=== PATIENT | female | born 1960 | race Caucasian/White ===

== ENCOUNTER 2017-06-12 00:47 | Emergency (ER) | payer BC ==
[2017-06-12] MEDS ORDERED: Erythromycin Base 0.5% Ophth Oint 1 GM Tube EYERT ONE (01:35)
--- NOTE | 2017-06-12 01:38 | EDM.PDOC ---
ED HPI GENERAL MEDICAL PROBLEM - General Chief Complaint: Eye Problems Stated Complaint: CONTACT STUCK IN R EYE Time Seen by Provider: 06/12/17 00:58 Source of Information: Reports: Patient History Limitations: Reports: No Limitations - History of Present Illness INITIAL COMMENTS - FREE TEXT/NARRATIVE: This is a 57-year-old female. She is trying contacts in her eyes and started a couple days ago. She's noted that she has a difficult time getting the contacts out though she can put them in easily. She wears 24-hour contacts. This evening she attempted to get the contact out of her right eye and was unable to do so and so she continued to try until now she's got severe swelling of the sclera on the inferior side of the right eye. She still thinks the contact is in her right eye and she comes to the ER for evaluation. She denies any significant change in vision with this redness and swelling of the sclera. 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 History: Reports: Musculoskeletal History: Reports: Fracture Other Musculoskeletal History: cheek bone fx Oncologic (Cancer) History: Reports: Ovarian, Other (See Below) Other Oncologic History: fallopian tube cancer - Infectious Disease History Infectious Disease History: Reports: Chicken Pox - Past Surgical History HEENT Surgical History: Reports: Tonsillectomy Female Surgical History: Reports: Hysterectomy Social & Family History - Tobacco Use Smoking Status *Q: Never Smoker - Caffeine Use Caffeine Use: Reports: Coffee - Recreational Drug Use Recreational Drug Use: No ED ROS GENERAL - Review of Systems Review Of Systems: See Below Constitutional: Denies: Fever, Chills HEENT: Reports: Eye Discharge, Eye Pain. Denies: Vision Change Respiratory: Reports: No Symptoms Cardiovascular: Reports: No Symptoms Endocrine: Reports: No Symptoms GI/Abdominal: Reports: No Symptoms : Reports: No Symptoms Musculoskeletal: Reports: No Symptoms Skin: Reports: No Symptoms Neurological: Reports: No Symptoms Psychiatric: Reports: No Symptoms Hematologic/Lymphatic: Reports: No Symptoms ED EXAM GENERAL W FULL EYE - Physical Exam Exam: See Below Exam Limited By: No Limitations General Appearance: Alert, WD/WN, No Apparent Distress Eye Exam: Bilateral Eye: Other (The right eye is very inflamed and especially the inferior portion of the globe with swelling of the sclera and bruising of the sclera, the right upper lid is also slightly swollen due to her rubbing her eye, with examination I cannot see any contact lens, fluorsceine stain was used and showed a corneal abrasion but there is no contact lens in her right eye) Eyelids: Right: Edema (Upper eyelid only), Lid Everted for Exam (No foreign body seen no contact lens seen) Conjunctiva & Sclera: Right: Conjunctival Edema, Injected, Subconjuctival Hemorrhage Cornea Exam: Right: Corneal Abrasion Extraocular Movements: Bilateral: Intact Pupils: Normal Accommodation Pupillary Reaction: Bilateral: Brisk Anterior Chamber: Bilateral: Normal Appearance Ears: Normal External Exam Nose: Normal Inspection Throat/Mouth: Normal Inspection, Normal Lips, Normal Voice Head: Normocephalic Neck: Supple Respiratory/Chest: No Respiratory Distress Back Exam: Full Range of Motion Extremities: Normal Inspection, Normal Range of Motion, Non-Tender Neurological: Alert, Oriented Psychiatric: Normal Affect, Normal Mood Skin Exam: Warm, Dry Course - Vital Signs Last Recorded V/S: Last Vital Signs Temp 97.4 F 06/12/17 00:56 Pulse 65 06/12/17 00:56 Resp 18 06/12/17 00:56 BP 163/94 H 06/12/17 00:56 Pulse Ox 98 06/12/17 00:56 - Orders/Labs/Meds Orders: Active Orders 24 hr Category Date Time Status Communication Order [RC] STAT Care 06/12/17 01:35 Active Meds: Medications Discontinued Medications Generic Name Dose Route Start Last Admin Trade Name Rahat PRN Reason Stop Dose Admin Erythromycin 1 gm 06/12/17 01:35 Erythromycin 0.5% Ophth Oint EYERT 06/12/17 01:36 ONETIME ONE - Re-Assessments/Exams Free Text/Narrative Re-Assessment/Exam: 06/12/17 01:49 She has some scleral swelling and mild hemorrhage along with a corneal abrasion noted by flouresceine stain. Departure - Departure Time of Disposition: 01:50 Disposition: Home, Self-Care 01 Condition: Good Clinical Impression: Scleral hemorrhage of right eye Corneal abrasion, right Qualifiers: Encounter type: initial encounter Qualified Code(s): S05.01XA - Injury of conjunctiva and corneal abrasion without foreign body, right eye, initial encounter Injury of right conjunctiva and corneal abrasion Qualifiers: Encounter type: initial encounter Qualified Code(s): S05.01XA - Injury of conjunctiva and corneal abrasion without foreign body, right eye, initial encounter - Discharge Information Referrals: Jeremiah France MD [Primary Care Provider] - Forms: ED Department Discharge Additional Instructions: Wear the eye patch until 6 PM on Tuesday then you may take it off, get some artificial tears and use them for the irritation of that right eye once the patch is off, use the Cortisporin otic drops 3 times a day once the patches off for at least the next 3-4 days, do not rub your eye because you will continue the irritation and swelling of the eye, do not put contacts in the right eye until the eye is completely healed, follow-up with your eye doctor this week for recheck - My Orders Last 24 Hours: My Active Orders 06/12/17 01:35 Communication Order [RC] STAT - Assessment/Plan Last 24 Hours: My Active Orders 06/12/17 01:35 Communication Order [RC] STAT
== END 2017-06-12 02:05 | disposition home or self-care (01) ==
LOC: JD.ED 00:47
DX: S05.01XA Injury of conjunctiva and corneal abrasion without foreign body, right eye, initial encounter (principal); H11.31 Conjunctival hemorrhage, right eye; X58.XXXA Exposure to other specified factors, initial encounter
CPT/HCPCS: 99283; A9270; 99282

== ENCOUNTER 2021-01-20 07:25 | Day surgery (SDC) | payer BC ==
[~2021-01-20 07:25] MED LIST: Lactated Ringers 1,000 ML IV SCH; Lidocaine 1%/Sod Bicarbonate in NS 8.4% 1 ML Syringe IDERM PRN; Sodium Chloride 0.9% 10 ML Syringe FLUSH PRN
--- NOTE | 2021-01-20 07:47 | PCM.PREANE ---
Preanesthetic Assessment - Procedure Proposed Procedure: screening colonoscopy - Anesthesia/Transfusion/Family Hx Anesthesia History: Prior Anesthesia Without Reaction Family History of Anesthesia Reaction: No Transfusion History: No Prior Transfusion(s) Intubation History: Unknown - Review of Systems General: No Symptoms Pulmonary: No Symptoms Cardiovascular: No Symptoms Gastrointestinal: No Symptoms Neurological: Headache ( in past, not currently ) Other: Reports: None - Physical Assessment NPO Status Date: 01/20/21 NPO Status Time: 04:00 Height: 1.68 m Weight: 79.379 kg ASA Class: 2 Mental Status: Alert & Oriented x3 Airway Class: Mallampati = 1 Dentition: Reports: Normal Dentition Thyro-Mental Finger Breadths: 3 Mouth Opening Finger Breadths: 5 ROM/Head Extension: Full Lungs: Clear to Auscultation, Normal Respiratory Effort Cardiovascular: Regular Rate, Regular Rhythm - Allergies Allergies/Adverse Reactions: Allergies Allergy/AdvReac Type Severity Reaction Status Date / Time paclitaxel [From Taxol] Allergy Itching Verified 01/19/21 13:53 - Blood Blood Available: No - Anesthesia Plan Pre-Op Medication Ordered: None - Acknowledgements Anesthesia Type Planned: MAC Pt an Appropriate Candidate for the Planned Anesthesia: Yes Alternatives and Risks of Anesthesia Discussed w Pt/Guardian: Yes Pt/Guardian Understands and Agrees with Anesthesia Plan: Yes PreAnesthesia Questionnaire HEENT History: Reports: Impaired Vision Cardiovascular History: Reports: High Cholesterol Respiratory History: Reports: None Gastrointestinal History: Reports: None Genitourinary History: Reports: None 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: Reports: , Other (See Below) Other OB/BYN History: decreased libido, fallopian tube cancer Musculoskeletal History: Reports: Fracture, Osteoarthritis Other Musculoskeletal History: cheek bone fx Neurological History: Reports: Headaches, Chronic, Other (See Below) Other Neuro History: spine osteophyte, cervical spine pain Psychiatric History: Reports: None Endocrine/Metabolic History: Reports: None Hematologic History: Reports: None Immunologic History: Reports: None Oncologic (Cancer) History: Reports: Ovarian, Other (See Below) Other Oncologic History: fallopian tube cancer Dermatologic History: Reports: None - Infectious Disease History Infectious Disease History: Reports: Chicken Pox - Past Surgical History Head Surgeries/Procedures: Reports: None HEENT Surgical History: Reports: Tonsillectomy Cardiovascular Surgical History: Reports: None Respiratory Surgical History: Reports: None GI Surgical History: Reports: Colonoscopy Female Surgical History: Reports: Hysterectomy, Oophorectomy Male Surgical History: Reports: None Endocrine Surgical History: Reports: None Musculoskeletal Surgical History: Reports: None Oncologic Surgical History: Reports: None - SUBSTANCE USE Tobacco Use Status *Q: Never Tobacco User Days Per Week of Alcohol Use: 1 Number of Drinks Per Day: 2 Total Drinks Per Week: 2 Recreational Drug Use History: No - HOME MEDS Home Medications: Home Meds Judy/Cell/Lipas/Malt/Prt/Lac/in [Digestive Enzymes Capsule] 220 mg PO DAILY 01/19/21 [History] Calcium Carbonate [Coral Calcium] 1 dose PO DAILY 01/19/21 [History] Lactobacillus Combination No.4 [Probiotic] 1 cap PO DAILY 01/19/21 [History] Multivit,Calc,Mins/Iron/Folic [Women's Daily Formula Caplet] 1 tab PO DAILY 01/19/21 [History] - CURRENT (IN HOUSE) MEDS Current Meds: Current Medications Lactated Ringer's (Ringers, Lactated) 1,000 mls @ 125 mls/hr IV ASDIRECTED KRYSTA Stop: 01/20/21 23:00 Lidocaine/Sodium Bicarbonate (Lidocaine 1%/Sod Bicarbonate In Ns 8.4% 1 Ml Syringe) 0.25 ml IDERM ONETIME PRN PRN Reason: Prior to IV Start Stop: 01/20/21 18:00 Sodium Chloride (Sodium Chloride 0.9% 10 Ml Syringe) 10 ml FLUSH ASDIRECTED PRN PRN Reason: Keep Vein Open Stop: 01/20/21 18:00
[2021-01-20] MEDS ORDERED: Propofol 200 MG/20 ML SDV ONE (08:17)
[2021-01-20] MEDS ORDERED: Lidocaine 1% 4 ML ONE ×2 (08:18→08:20)
--- NOTE | 2021-01-20 09:55 | PCM48HPAN ---
Post Anesthesia Note - EVALUATION WITHIN 48HRS OF ANESTHETIC Vital Signs in Normal Range: Yes Patient Participated in Evaluation: Yes Respiratory Function Stable: Yes Airway Patent: Yes Cardiovascular Function Stable: Yes Hydration Status Stable: Yes Pain Control Satisfactory: Yes Nausea and Vomiting Control Satisfactory: Yes Mental Status Recovered: Yes Vital Signs: 0949 Last Vital Signs 147/61 97 RA 62 24 97.5 Temp 36.4 C 01/20/21 07:40 Pulse 67 01/20/21 07:40 Resp 16 01/20/21 07:40 BP 124/77 01/20/21 07:40 Pulse Ox 96 01/20/21 07:40
--- NOTE | 2021-01-20 10:35 | PCM.PRNOTE ---
- Free Text/Narrative Note: Date: 01/20/2021 Procedure: screening colonoscopy History: father diagnosed with colon cancer in his 70s. Patient's last screening was 5 years ago; patient reports a few small polyps removed at that time. Endoscopist: Eduardo Mckoy MD Findings: Difficult scope due to floppy, tortuous colon. Cecum reach. Prep was e xcellent. No polyps. Diverticular disease. Detailed Report: The patient was taken to the endoscopy suite and placed in left lateral decubitus position. Timeout was performed and monitored anesthesia care was initiated. Visual inspection of the anus revealed no abnormality. Digital rectal exam was unremarkable. The colonoscope was inserted and advanced all the way to the cecum. This was challenging due to a floppy, redundant colon with several sharp turns. However, the cecum was reached and the ileocecal valve was visualized. Prep was excellent. The scope was slowly withdrawn and mucosal surfaces carefully inspected. No polyps were identified. There was scattered diverticular disease throughout the colon. On retroflexion within the rectum no significant hemorrhoidal disease was appreciated. Air was suctioned from the distal colon and rectum prior to withdrawal of the scope. The patient tolerated the procedure well.
== END 2021-01-20 10:28 | disposition home or self-care (01) ==
LOC: JD.SDS 07:25
PROVIDERS: ATTEND Surgery
DX: Z12.11 Encounter for screening for malignant neoplasm of colon (principal); K57.30 Diverticulosis of large intestine without perforation or abscess without bleeding; E78.00 Pure hypercholesterolemia, unspecified; Z80.0 Family history of malignant neoplasm of digestive organs; Z88.8 Allergy status to other drugs, medicaments and biological substances; Z79.899 Other long term (current) drug therapy; Z98.890 Other specified postprocedural states
CPT/HCPCS: 45378; J2704; J7120; 00812